=== PATIENT | female | born 1995 | race Caucasian/White ===

== ENCOUNTER 2017-09-05 13:53 | Inpatient (IN) | payer OTHER ==
[~2017-09-05] VITALS: Ht 165.1 cm; Wt 61.7 kg
[2017-09-05 15:00] LABS: ABSOLUTE BASOPHIL COUNT 0.2 /CUMM (0.0-0.2); ABSOLUTE EOSINOPHIL COUNT 0.1 /CUMM (0.0-0.7); ABSOLUTE GRANULOCYTE CT 9.8 /CUMM (1.4-6.5); ABSOLUTE LYMPH COUNT 1.8 /CUMM (1.2-3.4); ABSOLUTE MONOCYTE COUNT 1.3 /CUMM (0.10-0.60); BASOPHIL % 1.5 % (0.0-2.0); EOSINOPHIL % 0.6 % (0-5); GRANULOCYTE % 74.6 % (42.2-75.2); HEMATOCRIT 34.7 % (37-47); MEAN CORPUSCULAR HGB 30.6 PG (27.0-31.0); MEAN CORPUSCULAR HGB CONC 33.8 G/DL (33.0-37.0); MEAN CORPUSCULAR VOLUME 90.5 FL (81.0-99.0); MEAN PLATELET VOLUME 10.2 FL (7.4-10.4); PLATELET COUNT 224 /CUMM (130-400); RED BLOOD CELL CT 3.83 /CUMM (4.20-5.40); WHITE BLOOD CELL COUNT 13.2 /CUMM (4.8-10.8)
--- NOTE | 2017-09-05 19:01 | History & Physical Pre-Op ---
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
--- NOTE | 2017-09-05 22:12 | Labor & Delivery Summary ---
Delivery Summary Vaginal Delivery: Vaginal: vertex : : vacuum (SECONDARY TO POOR MATERNAL EFF) Placenta: Placenta: 2 VESSEL Anesthesia: block Additional Comments: VACUUM ASSISTED VAGINAL DELIVERY SECONDARY TO POOR MATERNAL EFFORT AND BRADYCARDIA TO60.VIABLE MALE INFANT 2 VESSEL CORD .PLACENTA BY CCY OVER 2ND DEGREE LACERATION. LACERATION REPAIRED IN LAYERS WITH3 0.RECTUM AND CERVIX FREE OF SUTURES POST REPAIR. RH-
[2017-09-06 07:52] LABS: ABSOLUTE BASOPHIL COUNT 0 /CUMM (0.0-0.2); RED BLOOD CELL CT 3.14 /CUMM (4.20-5.40)
[2017-09-06 08:01] LABS: ABSOLUTE EOSINOPHIL COUNT 0.1 /CUMM (0.0-0.7); ABSOLUTE GRANULOCYTE CT 14.1 /CUMM (1.4-6.5); ABSOLUTE LYMPH COUNT 1.9 /CUMM (1.2-3.4); ABSOLUTE MONOCYTE COUNT 1.9 /CUMM (0.10-0.60); BASOPHIL % 0.1 % (0.0-2.0); EOSINOPHIL % 0.3 % (0-5); GRANULOCYTE % 78.3 % (42.2-75.2); MEAN CORPUSCULAR HGB 30.8 PG (27.0-31.0); MEAN CORPUSCULAR HGB CONC 33.6 G/DL (33.0-37.0); MEAN CORPUSCULAR VOLUME 91.6 FL (81.0-99.0); MEAN PLATELET VOLUME 10.5 FL (7.4-10.4); RBC DISTRIBUTION WIDTH 13.4 % (11.5-14.5)
[2017-09-06 08:07] LABS: HEMATOCRIT 28.7 % (37-47)
[2017-09-06] MEDS ORDERED: IBUPROFEN800 M1 PO (08:29)
[2017-09-06 08:41] LABS: PLATELET COUNT 200 /CUMM (130-400)
--- NOTE | 2017-09-06 19:53 | PN- Post Delivery/GYN ---
Subjective Subjective: NO COMPLAINTS Objective Last 24 Hrs of Vital Signs/I&O Intake & Output 09/06 1600 09/06 0800 09/06 0000 Intake Total Output Total Balance Patient 136 lb Weight Physical Exam: PE THIN WFIN NAD HEENTPERRLA ABD SOFT NT FUNDUS FIRM NT LOCHIA MINIMAL EXT-EDEMA Assessment/Plan Assessment/Plan ASSESS S/P PLAN CONT PPC
== END 2017-09-07 11:31 | DRG 560 ==
LOC: CBCO 13:53 → GNO 18:17 → CBCO 09-14 08:00
PROVIDERS: Specialist
PROC: 0KQM0ZZ Repair Perineum Muscle, Open Approach (ICD-10-PCS; principal; 2017-09-05)
PROC: 10D07Z6 Extraction of Products of Conception, Vacuum, Via Natural or Artificial Opening (ICD-10-PCS; principal; 2017-09-05)
DX: O70.1 Second degree perineal laceration during delivery (principal); Z3A.38 38 weeks gestation of pregnancy; Z37.0 Single live birth; O75.81 Maternal exhaustion complicating labor and delivery
CPT/HCPCS: GNOP; GNOS; 81001; 86920; 86922; 87389; 88307; G0463; J2790